=== PATIENT | male | born 1960 | race African-American/Black ===

== ENCOUNTER 2017-08-30 13:53 | Inpatient (IN) | payer OTHER ==
[~2017-08-30] VITALS: Ht 167.6 cm; Wt 119.3 kg
[2017-08-30 14:53] LABS: BASOPHIL % 1.7 % (0-2); RED CELL DISTRIBUTION WIDTH 12.7 % (11.5-14.5)
[2017-08-30 15:01] LABS: PLATELET COUNT 438 x10^3mcL (130-400)
[2017-08-30 15:25] LABS: POTASSIUM SERUM 4.1 mmol/L (3.5-5.1)
[2017-08-30 15:28] LABS: ALBUMIN 3.9 g/dL (3.4-5.0); ALKALINE PHOSPHATASE 56 U/L (46-116); ALT/SGPT 28 U/L (16-63); AST/SGOT 22 U/L (15-37); BILIRUBIN TOTAL 4.93 mg/dL (0.20-1.00); CARBON DIOXIDE 24.4 mmol/L (21-32); CHLORIDE SERUM 95 mmol/L (98-107); CREATININE SERUM 0.8 mg/dL (0.7-1.3); GFR1 > 60 mL/min; GLUCOSE SERUM 195 mg/dL (74-106); SODIUM SERUM 131 mmol/L (136-145); TOTAL PROTEIN, SERUM 7.8 g/dL (6.4-8.2)
[2017-08-30 16:44] LABS: microscopic required? NO
[2017-08-30 17:00] LABS: AMPHETAMINE QUAL UR NONE DETECTED (See below)
[2017-08-30 17:03] LABS: UA SPECIFIC GRAVITY 1.015 (1.005-1.035); urine erythrocyte NEGATIVE (NEGATIVE)
[2017-08-30] MEDS ORDERED: MORPHINE SULFAT15 MG PO (18:00)
[2017-08-30] MEDS ORDERED: NIFEDIPINE ER60 M1 PO (18:00)
[2017-08-30] MEDS ORDERED: REYATAZ300 MG PO (18:01)
[2017-08-30] MEDS ORDERED: NORVIR100 M2 PO ×2 (18:01→18:05)
[2017-08-30] MEDS ORDERED: REPHRESH1 GEL PO (18:05)
[2017-08-30] MEDS ORDERED: HYDROCHLOROTHIA25 MG PO (18:06)
[2017-08-30] MEDS ORDERED: LANTUS SOLOS100 U/M1 ×2 (18:06→18:08)
[2017-08-30] MEDS ORDERED: FINASTERIDE5 M1 PO (18:06)
[2017-08-30] MEDS ORDERED: COLACE100 MG PO (18:07)
[2017-08-30] MEDS ORDERED: EMTRIVA200 M1 PO (18:07)
[2017-08-30] MEDS ORDERED: ASPIRIN ADULT L81 M5 PO (18:08)
[2017-08-30] MEDS ORDERED: PRAVACHOL20 MG PO (18:08)
[2017-08-30] MEDS ORDERED: METFORMIN HCL1000 MG PO (18:08)
[2017-08-30 18:09] LABS: MAGNESIUM 2.1 mg/dL (1.8-2.4); PHOSPHOROUS 3.7 mg/dL (2.5-4.9)
[2017-08-30 18:13] LABS: CHOLESTEROL/HDL RATIO 1.9
[2017-08-30 18:17] LABS: FREE T4 0.93 ng/dL (0.76-1.46); FREE THYROXINE INDEX 2.2 ug/dL (1.4-4.5); T3 TOTAL 1.13 ng/mL; T4(THYROXINE) 6.8 ug/dL (4.7-13.3)
[2017-08-30 18:57] VITALS: BP 139/66
[2017-08-30] MEDS ORDERED: DESCOVY 200-251 EACH PO (19:37)
[2017-08-30 20:00] VITALS: BP 139/60
[2017-08-31 05:35] VITALS: BP 132/63
[2017-08-31 07:05] LABS: CALCIUM 8.5 mg/dL (8.5-10.1); CARBON DIOXIDE 25.8 mmol/L (21-32); CHLORIDE SERUM 98 mmol/L (98-107); CREATININE SERUM 0.7 mg/dL (0.7-1.3); GFR1 > 60 mL/min; GLUCOSE SERUM 130 mg/dL (74-106); MAGNESIUM 1.9 mg/dL (1.8-2.4); PHOSPHOROUS 3.9 mg/dL (2.5-4.9); POTASSIUM SERUM 3.6 mmol/L (3.5-5.1); SODIUM SERUM 134 mmol/L (136-145)
[2017-08-31 07:12] LABS: BASOPHIL % 0.3 % (0-2); PLATELET COUNT 370 x10^3mcL (130-400); RED CELL DISTRIBUTION WIDTH 12.8 % (11.5-14.5)
[2017-08-31 09:51] VITALS: BP 150/69
[2017-08-31 12:59] VITALS: BP 154/58
[2017-08-31 16:50] VITALS: BP 137/68
[2017-08-31 19:20] VITALS: BP 144/66
[2017-09-01 05:46] VITALS: BP 146/45
[2017-09-01 06:10] LABS: BASOPHIL % 0.3 % (0-2); PLATELET COUNT 349 x10^3mcL (130-400); RED CELL DISTRIBUTION WIDTH 12.7 % (11.5-14.5)
[2017-09-01 06:33] LABS: CALCIUM 8.6 mg/dL (8.5-10.1); CHLORIDE SERUM 94 mmol/L (98-107); CREATININE SERUM 0.7 mg/dL (0.7-1.3); GFR1 > 60 mL/min; GLUCOSE SERUM 111 mg/dL (74-106); MAGNESIUM 2.3 mg/dL (1.8-2.4); PHOSPHOROUS 4.6 mg/dL (2.5-4.9); POTASSIUM SERUM 4.6 mmol/L (3.5-5.1); SODIUM SERUM 130 mmol/L (136-145)
[2017-09-01 13:30] VITALS: BP 147/63
[2017-09-01 17:47] VITALS: BP 158/68
[2017-09-01 20:00] VITALS: BP 150/60
[2017-09-01 21:45] VITALS: BP 130/65
[2017-09-01 21:46] VITALS: BP 130/65
[2017-09-02] VITALS (17 sets, daily range): BP systolic 103–157; BP diastolic 52–148
[2017-09-02 07:08] LABS: BASOPHIL % 0.4 % (0-2); PLATELET COUNT 321 x10^3mcL (130-400); RED CELL DISTRIBUTION WIDTH 12.9 % (11.5-14.5)
[2017-09-02 07:23] LABS: CALCIUM 8.6 mg/dL (8.5-10.1); CARBON DIOXIDE 20.6 mmol/L (21-32); CREATININE SERUM 1.4 mg/dL (0.7-1.3); MAGNESIUM 2.3 mg/dL (1.8-2.4); PHOSPHOROUS 6.7 mg/dL (2.5-4.9); POTASSIUM SERUM 4.5 mmol/L (3.5-5.1)
[2017-09-03] VITALS (18 sets, daily range): BP systolic 103–139; BP diastolic 51–73
[2017-09-03 05:45] LABS: BASOPHIL % 0.5 % (0-2); PLATELET COUNT 293 x10^3mcL (130-400); RED CELL DISTRIBUTION WIDTH 12.8 % (11.5-14.5)
[2017-09-03 05:55] LABS: CALCIUM 8.3 mg/dL (8.5-10.1); CARBON DIOXIDE 26.3 mmol/L (21-32); CREATININE SERUM 1.5 mg/dL (0.7-1.3); POTASSIUM SERUM 4.2 mmol/L (3.5-5.1)
[2017-09-04] VITALS (18 sets, daily range): BP systolic 131–155; BP diastolic 57–81
[2017-09-04 06:04] LABS: CALCIUM 8.3 mg/dL (8.5-10.1); CARBON DIOXIDE 28.5 mmol/L (21-32); CREATININE SERUM 1.5 mg/dL (0.7-1.3); POTASSIUM SERUM 4.2 mmol/L (3.5-5.1)
[2017-09-04 06:09] LABS: BASOPHIL % 0.5 % (0-2); PLATELET COUNT 288 x10^3mcL (130-400); RED CELL DISTRIBUTION WIDTH 13.4 % (11.5-14.5)
[2017-09-05] VITALS (17 sets, daily range): BP systolic 118–162; BP diastolic 44–90; Ht 167.6 cm; Wt 119.3 kg
[2017-09-05 05:49] LABS: BASOPHIL % 0 % (0-2); PLATELET COUNT 289 x10^3mcL (130-400); RED CELL DISTRIBUTION WIDTH 12.6 % (11.5-14.5)
[2017-09-05 05:55] LABS: CALCIUM 8.5 mg/dL (8.5-10.1); CARBON DIOXIDE 27.9 mmol/L (21-32); CREATININE SERUM 1.7 mg/dL (0.7-1.3); POTASSIUM SERUM 4.2 mmol/L (3.5-5.1)
[2017-09-06] VITALS (11 sets, daily range): BP systolic 145–182; BP diastolic 67–95
[2017-09-06 05:37] LABS: BASOPHIL % 0.5 % (0-2); PLATELET COUNT 287 x10^3mcL (130-400); RED CELL DISTRIBUTION WIDTH 13.1 % (11.5-14.5)
[2017-09-06 05:46] LABS: CALCIUM 8.8 mg/dL (8.5-10.1); CARBON DIOXIDE 30.3 mmol/L (21-32); CHLORIDE SERUM 101 mmol/L (98-107); CREATININE SERUM 1.3 mg/dL (0.7-1.3); GFR1 > 60 mL/min; GLUCOSE SERUM 351 mg/dL (74-106); SODIUM SERUM 140 mmol/L (136-145)
[2017-09-07 03:54] VITALS: BP 140/71
[2017-09-07 05:39] LABS: BASOPHIL % 1.4 % (0-2); CALCIUM 9.1 mg/dL (8.5-10.1); CHLORIDE SERUM 107 mmol/L (98-107); CREATININE SERUM 0.8 mg/dL (0.7-1.3); GFR1 > 60 mL/min; GLUCOSE SERUM 136 mg/dL (74-106); PLATELET COUNT 284 x10^3mcL (130-400); POTASSIUM SERUM 4.1 mmol/L (3.5-5.1); RED CELL DISTRIBUTION WIDTH 13.3 % (11.5-14.5); SODIUM SERUM 145 mmol/L (136-145)
[2017-09-07 07:27] VITALS: BP 138/90
[2017-09-07 12:12] VITALS: BP 90/62
[2017-09-07 16:04] VITALS: BP 126/76
[2017-09-07 19:49] VITALS: BP 138/74
[2017-09-07 23:00] VITALS: BP 138/70
[2017-09-08 03:04] VITALS: BP 138/75
[2017-09-08 05:28] LABS: BASOPHIL % 0.3 % (0-2); PLATELET COUNT 267 x10^3mcL (130-400); RED CELL DISTRIBUTION WIDTH 13.2 % (11.5-14.5)
[2017-09-08 05:36] LABS: CALCIUM 9.1 mg/dL (8.5-10.1); CARBON DIOXIDE 33.6 mmol/L (21-32); CHLORIDE SERUM 99 mmol/L (98-107); CREATININE SERUM 0.8 mg/dL (0.7-1.3); GFR1 > 60 mL/min; GLUCOSE SERUM 108 mg/dL (74-106); POTASSIUM SERUM 3.8 mmol/L (3.5-5.1); SODIUM SERUM 137 mmol/L (136-145)
[2017-09-08 07:31] VITALS: BP 129/65
[2017-09-08 11:30] VITALS: BP 125/75
[2017-09-08 15:24] VITALS: BP 119/78
[2017-09-08 19:46] VITALS: BP 136/72
[2017-09-09 03:20] VITALS: BP 113/76
[2017-09-09 05:13] LABS: BASOPHIL % 0.2 % (0-2); PLATELET COUNT 254 x10^3mcL (130-400)
[2017-09-09 05:20] LABS: CALCIUM 8.5 mg/dL (8.5-10.1); CARBON DIOXIDE 27.9 mmol/L (21-32); CHLORIDE SERUM 96 mmol/L (98-107); CREATININE SERUM 0.8 mg/dL (0.7-1.3); GFR1 > 60 mL/min; GLUCOSE SERUM 93 mg/dL (74-106); POTASSIUM SERUM 3.4 mmol/L (3.5-5.1); SODIUM SERUM 133 mmol/L (136-145)
[2017-09-09 07:50] VITALS: BP 128/71
[2017-09-09 10:41] VITALS: BP 128/71
[2017-09-09 12:27] VITALS: BP 128/72
[2017-09-09 16:15] VITALS: BP 154/81
[2017-09-09 20:46] VITALS: BP 120/64
[2017-09-10 04:34] VITALS: BP 126/62
[2017-09-10 07:01] LABS: BASOPHIL % 0.3 % (0-2); PLATELET COUNT 246 x10^3mcL (130-400); RED CELL DISTRIBUTION WIDTH 13.5 % (11.5-14.5)
[2017-09-10 07:02] LABS: CALCIUM 8.2 mg/dL (8.5-10.1); CARBON DIOXIDE 29.5 mmol/L (21-32); CHLORIDE SERUM 99 mmol/L (98-107); CREATININE SERUM 0.8 mg/dL (0.7-1.3); GLUCOSE SERUM 89 mg/dL (74-106); POTASSIUM SERUM 3.6 mmol/L (3.5-5.1); SODIUM SERUM 135 mmol/L (136-145)
[2017-09-10 08:24] VITALS: BP 122/58
[2017-09-10 12:44] VITALS: BP 126/66
[2017-09-10 16:54] VITALS: BP 107/61
[2017-09-10 22:27] VITALS: BP 123/60
[2017-09-11 05:04] VITALS: BP 128/47
[2017-09-11 07:17] LABS: CALCIUM 8.6 mg/dL (8.5-10.1); CARBON DIOXIDE 26.2 mmol/L (21-32); CHLORIDE SERUM 102 mmol/L (98-107); GLUCOSE SERUM 81 mg/dL (74-106); POTASSIUM SERUM 3.6 mmol/L (3.5-5.1); SODIUM SERUM 136 mmol/L (136-145)
[2017-09-11 07:20] LABS: CREATININE SERUM 0.7 mg/dL (0.7-1.3); GFR1 > 60 mL/min
[2017-09-11 07:36] LABS: BASOPHIL % 0.4 % (0-2); PLATELET COUNT 242 x10^3mcL (130-400); RED CELL DISTRIBUTION WIDTH 13.4 % (11.5-14.5)
[2017-09-11 08:00] VITALS: BP 144/60
[2017-09-11 13:39] VITALS: BP 138/70
[2017-09-11 17:45] VITALS: BP 142/71
[2017-09-11 21:48] VITALS: BP 168/74
[2017-09-12] VITALS (9 sets, daily range): BP systolic 111–143; BP diastolic 49–73
[2017-09-12 06:27] LABS: CALCIUM 8.3 mg/dL (8.5-10.1); CARBON DIOXIDE 25.9 mmol/L (21-32); CHLORIDE SERUM 104 mmol/L (98-107); CREATININE SERUM 0.7 mg/dL (0.7-1.3); GFR1 > 60 mL/min; POTASSIUM SERUM 3.5 mmol/L (3.5-5.1); SODIUM SERUM 137 mmol/L (136-145)
[2017-09-12 06:45] LABS: GLUCOSE SERUM 55 mg/dL (74-106)
[2017-09-12 07:08] LABS: BASOPHIL % 0.2 % (0-2); PLATELET COUNT 296 x10^3mcL (130-400); RED CELL DISTRIBUTION WIDTH 13.6 % (11.5-14.5)
[2017-09-13 05:50] VITALS: BP 136/79
[2017-09-13 09:20] VITALS: BP 129/69
[2017-09-13 13:32] VITALS: BP 144/78
== END 2017-09-13 20:11 | disposition other institution (70) | DRG 166 ==
LOC: ED 13:53 → DU 17:43 → IC 17:43 → DU 18:46 → IC 09-02 00:46 → DU 09-09 16:15
PROVIDERS: Emergency Medicine; Family Medicine; Internal Medicine
PROC: 5A1955Z Respiratory Ventilation, Greater than 96 Consecutive Hours (ICD-10-PCS; principal; 2017-09-02)
PROC: 0BH17EZ Insertion of Endotracheal Airway into Trachea, Via Natural or Artificial Opening (ICD-10-PCS; 2017-09-02)
PROC: 02HV33Z Insertion of Infusion Device into Superior Vena Cava, Percutaneous Approach (ICD-10-PCS; 2017-09-02)
PROC: B548ZZA Ultrasonography of Superior Vena Cava, Guidance (ICD-10-PCS; 2017-09-02)
PROC: 0B9F8ZX Drainage of Right Lower Lung Lobe, Via Natural or Artificial Opening Endoscopic, Diagnostic (ICD-10-PCS; 2017-09-05)
PROC: 0B9D8ZX Drainage of Right Middle Lung Lobe, Via Natural or Artificial Opening Endoscopic, Diagnostic (ICD-10-PCS; 2017-09-05)
PROC: 5A09357 Assistance with Respiratory Ventilation, Less than 24 Consecutive Hours, Continuous Positive Airway Pressure (ICD-10-PCS; 2017-09-06)
PROC: 5A09357 Assistance with Respiratory Ventilation, Less than 24 Consecutive Hours, Continuous Positive Airway Pressure (ICD-10-PCS; 2017-09-07)
PROC: 5A09357 Assistance with Respiratory Ventilation, Less than 24 Consecutive Hours, Continuous Positive Airway Pressure (ICD-10-PCS; 2017-09-09)
PROC: 5A09357 Assistance with Respiratory Ventilation, Less than 24 Consecutive Hours, Continuous Positive Airway Pressure (ICD-10-PCS; 2017-09-10)
PROC: 5A09357 Assistance with Respiratory Ventilation, Less than 24 Consecutive Hours, Continuous Positive Airway Pressure (ICD-10-PCS; 2017-09-11)
PROC: 0DJD8ZZ Inspection of Lower Intestinal Tract, Via Natural or Artificial Opening Endoscopic (ICD-10-PCS; 2017-09-12)
DX: J18.9 Pneumonia, unspecified organism (principal); J96.21 Acute and chronic respiratory failure with hypoxia; N17.0 Acute kidney failure with tubular necrosis; I50.43 Acute on chronic combined systolic (congestive) and diastolic (congestive) heart failure; G93.41 Metabolic encephalopathy; E87.1 Hypo-osmolality and hyponatremia; J44.0 Chronic obstructive pulmonary disease with (acute) lower respiratory infection; Z68.43 Body mass index [BMI] 50.0-59.9, adult; I13.0 Hypertensive heart and chronic kidney disease with heart failure and stage 1 through stage 4 chronic kidney disease, or unspecified chronic kidney disease; E11.65 Type 2 diabetes mellitus with hyperglycemia; E78.5 Hyperlipidemia, unspecified; K59.09 Other constipation; E11.22 Type 2 diabetes mellitus with diabetic chronic kidney disease; N40.0 Benign prostatic hyperplasia without lower urinary tract symptoms; D64.9 Anemia, unspecified; G89.29 Other chronic pain; B59 Pneumocystosis; M54.9 Dorsalgia, unspecified; D69.6 Thrombocytopenia, unspecified; N18.3 Chronic kidney disease, stage 3 (moderate); E66.9 Obesity, unspecified; Z79.4 Long term (current) use of insulin; Z79.82 Long term (current) use of aspirin; Z99.81 Dependence on supplemental oxygen; Z87.891 Personal history of nicotine dependence; Z78.1 Physical restraint status; Z79.899 Other long term (current) drug therapy; Z83.3 Family history of diabetes mellitus
CPT/HCPCS: 31645; 36556; 36600; 45378; 76770; 82947; 82962; 83880; 84439; 87116; 87206; 97110-GP; 97116-GP; 97530-GP; A4628; C9113; J0456; J0696; J1200; J1610; J1642; J1815; J1940; J1956; J2060; J2250; J2270; J2310; J2405; J2704; J2765; J2920; J3010; J3490; J7030; J7040; J7050; J7620; J7626; Q0092; Q9967